=== PATIENT | male | born 1990 | race Two or more races ===

== ENCOUNTER → 2024-05-23 | Emergency (ER) | payer OTHER ==
[~2024-05-23] VITALS: Ht 175.3 cm; Wt 97.5 kg
[2024-05-23 21:29] LABS: HEMATOCRIT 42.6 % (39.0-48.0); MEAN CELL VOLUME 87.1 fL (80.0-100.00); MEAN CORPUSCULAR HEMOGLOBIN 30.8 pg (27.00-32.0); MEAN CORPUSCULAR HGB CONC 35.3 g/dl (32.0-36.0); PLATELET COUNT 333 K/uL (150-450); RED BLOOD COUNT 4.89 M/uL (4.00-6.00); RED CELL DISTRIBUTION WIDTH 13.5 % (11.5-14.5)
[2024-05-23 21:51] LABS: CALCIUM 9.2 mg/dL (8.5-10.1); CREATININE SERUM 1.45 mg/dL (0.70-1.30); GFR 55.38; POTASSIUM 4.47 mEq/L (3.5-5.1)
[2024-05-24 00:10] LABS: COCAINE NEGATIVE (NEGATIVE); METHADONE NEGATIVE (NEGATIVE); OPIATES NEGATIVE (NEGATIVE); THC ( Cannabinoids) NEGATIVE (NEGATIVE)
== END | disposition home or self-care (01) ==
LOC: ER 20:41
PROVIDERS: Emergency Medicine
DX: R45.851 Suicidal ideations (principal); F32.0 Major depressive disorder, single episode, mild; Z59.00 Homelessness unspecified; Z20.822 Contact with and (suspected) exposure to COVID-19

== ENCOUNTER 2024-05-29 18:14 | Emergency (ER) | payer OTHER ==
[~2024-05-29] VITALS: Ht 172.7 cm; Wt 90.7 kg
[2024-05-29] MEDS ORDERED: KETOROLAC TROMETHAMINE 60 MG VIAL IM ONE (20:00)
[2024-05-29] MEDS ORDERED: CEFTRIAXONE SODIUM 1,000 MG VIAL IM ONE (20:00)
[2024-05-29 21:25] LABS: HEMATOCRIT 42.2 % (39.0-48.0); HEMOGLOBIN 14.8 g/dL (13-16.00); MEAN CELL VOLUME 87.1 fL (80.0-100.00); MEAN CORPUSCULAR HEMOGLOBIN 30.6 pg (27.00-32.0); MEAN CORPUSCULAR HGB CONC 35.2 g/dl (32.0-36.0); PLATELET COUNT 320 K/uL (150-450); RED BLOOD COUNT 4.84 M/uL (4.00-6.00); RED CELL DISTRIBUTION WIDTH 13.5 % (11.5-14.5)
== END 2024-05-29 22:06 | disposition home or self-care (01) ==
LOC: ER 18:16
PROVIDERS: General Practice
DX: Z48.02 Encounter for removal of sutures (principal); Z59.00 Homelessness unspecified

== ENCOUNTER → 2024-06-01 | Emergency (ER) | payer OTHER ==
[~2024-06-01] VITALS: Ht 175.3 cm; Wt 99.8 kg
[~2024-06-01] MED LIST: ACETYLCYSTEINE 2,000 MG/10 ML ML PO SCH; ACETYLCYSTEINE 2,000 MG/10 ML ML PO STA; ACTIVATED CHARCOAL PO STA
[2024-06-01 02:13] LABS: HEMATOCRIT 42.4 % (39.0-48.0); HEMOGLOBIN 14.9 g/dL (13-16.00); MEAN CELL VOLUME 87.2 fL (80.0-100.00); MEAN CORPUSCULAR HEMOGLOBIN 30.5 pg (27.00-32.0); PLATELET COUNT 298 K/uL (150-450); RED BLOOD COUNT 4.86 M/uL (4.00-6.00); RED CELL DISTRIBUTION WIDTH 13.6 % (11.5-14.5)
[2024-06-01 02:40] LABS: PARTIAL THROMBOPLASTIN TIME 32.5 SECONDS (22.0-34.0); PROTHROMBIN TIME 10.9 SECONDS (9.0-11.5)
[2024-06-01 02:56] LABS: ALBUMIN 3.8 gm/dL (3.4-5.0); ALKALINE PHOSPHATASE 105 U/L (50-136); ALT/SGPT 44 U/L (12-78); ANION GAP 10 (10.0-20.0); AST/SGOT 30 U/L (15-37); BILIRUBIN TOTAL 0.32 mg/dL (0.3-1.2); BILIRUBIN,CONJUGATED < 0.10 mg/dL (0.0-0.2); BILIRUBIN,UNCONJUGATED 0.22 mg/dL (0.0-0.6); BLOOD UREA NITROGEN 19 mg/dL (7-18); BUN CREA RATIO 17 (7.0-25.0); CALCIUM 9.2 mg/dL (8.5-10.1); CARBON DIOXIDE 25 mEq/L (21-32); CHLORIDE 110 mmol/L (98-107); GFR 76.18; GLOBULINA 3.7 G/DL (2.4-3.5); GLUCOSE FASTING 85 mg/dL (65-100); OSMOLALITY SERUM 283 MOSM/KG (275-295); POTASSIUM 4.36 mEq/L (3.5-5.1); SODIUM 141 mmol/L (136-145); TOTAL PROTEIN 7.5 gm/dL (6.4-8.2)
[2024-06-01 03:02] LABS: ACETAMINOPHEN 95.6 ug/ml (10-30)
[2024-06-01 03:36] LABS: URINE APPEARANCE Clear; URINE BILIRRUBIN Negative (NEGATIVE); URINE BLOOD Moderate; URINE COLOR Yellow; URINE GLUCOSE Negative (NEGATIVE); URINE KETONE Negative (NEGATIVE); URINE LEUKOCYTE Small; URINE NITRATE Negative; URINE PROTEIN Negative (NEGATIVE); URINE UROBILINOGEN 0.2 E.U./dl
[2024-06-01 03:39] LABS: URINE BACTERIA 98.2 uL (0.0-1933); URINE EPITHELIAL CELLS 8.8 uL (0.0-38.8); URINE RBC 317.7 uL (0.0-20.8)
[2024-06-01 03:43] LABS: URINE CAST 0.45 uL (0.0-1.40)
[2024-06-01 03:45] LABS: COCAINE NEGATIVE (NEGATIVE); METHADONE NEGATIVE (NEGATIVE); OPIATES NEGATIVE (NEGATIVE); THC ( Cannabinoids) POSITIVE (NEGATIVE)
[2024-06-01 20:23] LABS: ALBUMIN 3.2 gm/dL (3.4-5.0); ALKALINE PHOSPHATASE 77 U/L (50-136); ALT/SGPT 40 U/L (12-78); AST/SGOT 25 U/L (15-37); BILIRUBIN,CONJUGATED 0.11 mg/dL (0.0-0.2); BILIRUBIN,UNCONJUGATED 0.39 mg/dL (0.0-0.6); TOTAL PROTEIN 7.1 gm/dL (6.4-8.2)
[2024-06-01 20:28] LABS: ACETAMINOPHEN < 2.0 ug/ml (10-30)
[2024-06-02 07:34] VITALS: BP 123/92; O2SAT 95
== END | disposition left against medical advice (07) ==
LOC: ER → EDBD 00:26 → ER 00:26
PROVIDERS: General Practice
DX: T39.1X2A Poisoning by 4-Aminophenol derivatives, intentional self-harm, initial encounter (principal); Y92.89 Other specified places as the place of occurrence of the external cause; F32.A Depression, unspecified